=== PATIENT | female | born 1985 | race Caucasian/White ===

== ENCOUNTER 2018-09-21 16:07 | Emergency (ER) | payer SELFPAY ==
--- NOTE | 2018-09-21 16:34 | EDPHY ---
H & P Stated Complaint: SI with no plan Time Seen by Provider: 09/21/18 16:33 - Personal History LMP (Females 10-55): Now Current Tetanus/Diphtheria Vaccine: No Current Tetanus Diphtheria and Acellular Pertussis (TDAP): No - Medical/Surgical History Hx Asthma: No Hx Chronic Respiratory Disease: No Hx Diabetes: No Hx Cardiac Disease: No Hx Renal Disease: No Hx Cirrhosis: No Hx Alcoholism: No Hx HIV/AIDS: No Hx Splenectomy or Spleen Trauma: No Other PMH: depression, anxiety - Social History Smoking Status: Never smoked Constitutional: Initial Vital Signs Temperature (C) 36.7 C 09/21/18 16:15 Heart Rate 94 09/21/18 16:15 Respiratory Rate 16 09/21/18 16:15 Blood Pressure 121/99 H 09/21/18 16:15 O2 Sat (%) 99 09/21/18 16:15 O2 Delivery Mode Room Air Allergies/Adverse Reactions: levofloxacin [From Levaquin] Allergy (Verified 09/21/18 16:14) Home Medications: Medication Instructions Recorded Gricelda 28 Tablet 09/21/18 Medical Decision Making ED Course/Re-evaluation: CHIEF COMPLAINT: Psychiatric evaluation HISTORY OF PRESENT ILLNESS: The patient is a 33 y/o female arriving via voluntary via private vehicle for a psychiatric evaluation. This morning she felt suicidal and saw her therapist. Due to the thoughts, she was advised to present to the emergency department. However, she currently isn't suicidal. The patient states she went through an intensive outpatient program and states she has tools to deal with her depression. She states "I don't want to be here" and "I'm feeling better and not suicidal", but her feels like the therapist "forced me to bring her in". Her states that the patient needs her medication changed as it hasn 't been working. No fever, headache, body aches, lightheadedness, chest pain, heart palpitations, shortness of breath, cough, abdominal pain, urinary or bowel complaints, numbness, paresthesias. REVIEW OF SYSTEMS: A comprehensive 10 system review of systems is otherwise negative aside from elements mentioned in the history of present illness and medical decision making. PHYSICAL EXAM: General Appearance: Alert, well hydrated, appropriate, and non-toxic appearing. Head: Atraumatic without scalp tenderness or obvious injury Eyes: Pupils equal, round, reactive to light and accommodation, EOMI, no trauma , no injection. Ears: Clear bilaterally, no perforation, normal landmarks Nose: Atraumatic, no rhinorrhea, clear. Throat: There is no erythema or exudates, no lesions, normal tonsils, mucus membranes moist. Neck: Supple, 2+ carotid upstroke, nontender, no lymphadenopathy. Respiratory: No retractions, no distress, no wheezes, and no accessory muscle use. Lungs are clear to auscultation bilaterally. Cardiovascular: Regular rate and rhythm, no murmurs, rubs, or gallops. Bilateral carotid, radial, dorsalis pedis, and posterior tibial pulses intact. Good capillary refill all extremities. Gastrointestinal: Abdomen is soft, nontender, non-distended, no masses, no rebound, no guarding, no peritoneal signs. Musculoskeletal: Normal active ROM of all extremities, atraumatic. Neurological: Alert, appropriate, and interactive. The patient has normal DTRs and non-focal cranial nerves, motor, sensory, and cerebellar exam. Skin: No rashes, good turgor, no nodules on palpation. Psych: Denies suicidal or homicidal ideations. Patient is not gravely disabled. Past medical history: Depression Past surgical history: Anxiety Family history: Denies Social history: at bedside, lives in [place], [facility] DIFFERENTIAL DIAGNOSIS: The differential diagnosis for the patient's depression included but was not limited to functional and major depression, situational depression, medication side effect, drugs, and alcohol abuse. MEDICAL DECISION MAKING: The patient is a 33 y/o female arriving via voluntary via private vehicle for a psychiatric evaluation. This morning she felt suicidal and saw her therapist. Due to the thoughts, she was advised to present to the emergency department. However, she currently isn't suicidal. She states "I don't want to be here" and "I'm feeling better and not suicidal", but her feels like the therapist "forced me to bring her in". This patient does not meet hold criteria as she is not suicidal, homicidal, or gravely disabled. I will speak with the mental health scouring train operator chief regarding this patient. Patient is in no acute distress and is hemodynamically stable. We are awaiting psychiatric team's evaluation. Patient has known history of psychiatric disorders and is here for evaluation. 1651: I consulted with Rene, mental health scouring train operator chief, regarding this patient. 1836: I consulted with Rene regarding this patient after he evaluated her. She was provided resources for her depression and anxiety. She is safe to be discharged home. I have prescribed her Ativan for her anxiety. Return precautions provided; patient is comfortable with this plan. Departure - Departure Disposition: Home, Routine, Self-Care Clinical Impression: Suicidal ideation, Severe major depression Condition: Good Instructions: Depression (ED), Suicide Prevention (ED) Additional Instructions: 1. Follow-up with your mental health provider as directed. Please discuss medication change with your mental health provider. 2. Return to the ED for thoughts of self-harm, racing thoughts or other concerns. 3. Take Ativan as prescribed for anxiety. Referrals: [facility],. [Clinic] - As per Instructions Report Scribed for: Raphael Liao Report Scribed by: Faiza Ventura Date of Report: 09/21/18 Time of Report: 16:39
[2018-09-21] MEDS ORDERED: LORAZEPAM 1 MG PREPACK#4 BTL TAKEHOME ONE (18:35)
[2018-09-21 18:52] VITALS: BP 118/78
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
== END 2018-09-21 18:49 | disposition home or self-care (01) ==
DX: R45.851 Suicidal ideations (principal); F32.9 Major depressive disorder, single episode, unspecified; F41.9 Anxiety disorder, unspecified

== ENCOUNTER 2018-10-03 11:57 | Inpatient (IN) | payer OTHER ==
--- NOTE | 2018-10-03 13:07 | EDPHY ---
General Time Seen by Provider: 10/03/18 12:23 Narrative: CLINICAL IMPRESSION: Suicidal ideations ASSESSMENT/PLAN: 33-year-old female with a history of depression, anxiety, seen recently in our emergency department, returns today with her parents, social work and police for worsening depression anxiety and suicidal ideations. Patient is tearful, withdrawn, and admits to feeling suicidal with a plan to jump off a bridge. Patient has been hospitalized in the past for depression and admits to attempting suicide in the past. She has had no recent attempts and denies homicidal ideation. She was placed on an M1 hold by myself. She was medically cleared and evaluated by [facility]. I expect patient will require inpatient hospitalization. Case signed out to Dr. Ash pending [facility] evaluation and bed search. Patient stable at time of sign-out. DIFFERENTIAL DX: Differential includes but not limited to, acute/chronic psychosis, severe depression, suicidal or homicidal ideations, grave disability, failure to thrive , medication noncompliance, medication side effect, alcohol intoxication and illicit drug use, metabolic disturbance, electrolyte imbalance ED PROCEDURES: See lab and/or imaging results below ED COURSE: 1:00 p.m.: Based on my conversation with the patient and family and a social work administrator concerns, patient was placed on an M1 hold due to suicidal ideations. Standard lab and urine studies ordered. 1:30 pm: Patient is med cleared for [facility] eval. CHIEF COMPLAINT: Suicidal ideations HPI: 33-year-old female presents to the emergency department with social work administrator and her parents for concerns of severe depression with suicidal ideations. Patient is tearful, withdrawn, states that she has been suffering from depression and anxiety for "a very long time". States that medications do nothing and then most recently she has tried Zoloft and Ativan. She was seen in our emergency department 2 weeks ago, not deemed appropriate for hospitalization and was given Ativan at discharge. She does not feel this did anything for her. According to social work and parents, patient's condition has worsened over the last 2 weeks. She admits to me that she is feeling suicidal with a plan to jump off a building. She admits that she wants to kill herself in a way that does not injure other people. She feels as though she is "a piece of shit" that she "cannot picking tech the pieces of her life". She is but states that her is leaving her because she "cannot get her should together and he is tired of baby-sitting me". She admits to attempting suicide in the past. She has been picking at her fingers and hitting her legs on chairs in order to alleviate pain and has some wounds to these areas. She does have firearms in her home but there walked in a gun safe and she does not know the combination. 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 She was admitted to [facility] 1 year ago but states that she had a very unpleasant experience there because she found out she was in the hospital and felt that she was "forced into a decision about what to do with the ". Patient tells me that she elected to terminate the . She has no children at home. She reports there is a strong family history of depression and suicidal thoughts in both her parents and grandmother. 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 She smokes marijuana but denies any other drugs or alcohol. PAST MEDICAL HISTORY: Patient denies any past medical or surgical history See nurse/triage notes for additional history if applicable Family History: Patient reports family history of depression and suicidal thoughts Social History: Currently , lives in [place], brought to the ED by her parents REVIEW OF SYSTEMS: All other systems negative Constitutional: No fever, no chills, appetite change. Eyes: No discharge, vision change ENT: No sore throat, congestion, ear pain. Cardiovascular: No chest pain, no palpitations. Respiratory: No cough, no shortness of breath. Gastrointestinal: No abdominal pain, no vomiting, diarrhea. Genitourinary: No hematuria, dysuria, flank pain, pelvic pain, denies Musculoskeletal: No back pain, joint swelling, joint pain, myalgias. Skin: No rashes, color change. Sores to fingers and the backs of her heels Neurological: No headache, dizziness, weakness. PHYSICAL EXAM: General Appearance: Alert, oriented, sad, tearful, withdrawn, admits to feeling suicidal, vital signs stable, otherwise no physical complaints HEENT: Oropharynx clear is no erythema or exudates, no tonsillar hypertrophy or asymmetry. Eyes: [PERRLA, no acute vision change Neck: [Supple, nontender, no lymphadenopathy Respiratory: There are no retractions, lungs are clear to auscultation. Cardiac: Regular rate and rhythm, no murmurs or gallops. Gastrointestinal: [Abdomen is soft, nontender Neurological: [ Alert and oriented x 3, CN 2-12 grossly intact, normal gait no ataxia Skin: Warm, dry, no rashes, no nodules on palpation. no e/o paronychia of nails. small blisters to backs of both heels. Musculoskeletal: [Extremities are symmetrical, full range of motion Psychiatric: Patient is oriented X 3, there is no agitation, + suicidal with plan to jump off a bridge, tearful, withdrawn MEDICAL DECISION MAKING: Patient was seen independently. Secondary supervising physician at time of evaluation was Dr Nilsa Woods. Diagnosis: Suicidal ideations. New, requires workup Summary: See Assessment and Plan for summary of ED visit Clinical lab tests: ordered / reviewed. Decision to obtain medical records or history from someone other than the patient: Social work, parents, police Review / Summarize previous medical records: Reviewed recent ED chart notes Discussed patient with another provider: Dr. Lalo Munguia Patient Progress: stable at time of signout. - History Smoking Status: Never smoked - Objective Vital Signs: Initial Vital Signs Temperature (C) 36.9 C 10/03/18 12:56 Heart Rate 95 10/03/18 12:56 Respiratory Rate 16 10/03/18 12:56 Blood Pressure 134/78 H 10/03/18 12:56 O2 Sat (%) 97 10/03/18 12:56 O2 Delivery Mode Room Air Allergies/Adverse Reactions: levofloxacin [From Levaquin] Allergy (Verified 10/03/18 12:28) Home Medications: Medication Instructions Recorded Gricelda 28 Tablet 09/21/18 Laboratory Results: Laboratory Results 10/03/18 12:55 10/03/18 12:55 10/03/18 10/03/18 10/03/18 12:55 12:55 12:55 WBC RBC Hgb Hct MCV MCH MCHC RDW Plt Count MPV Neut % (Auto) Lymph % (Auto) Crockett % (Auto) Eos % (Auto) Baso % (Auto) Nucleat RBC Rel Count Absolute Neuts (auto) Absolute Lymphs (auto) Absolute Monos (auto) Absolute Eos (auto) Absolute Basos (auto) Absolute Nucleated RBC Immature Gran % Immature Gran # Sodium 141 mEq/L mEq/L (135-145) Potassium 4.0 mEq/L mEq/L (3.5-5.2) Chloride 103 mEq/L mEq/L (97-110) Carbon Dioxide 24 mEq/l mEq/l (22-31) Anion Gap 14 mEq/L mEq/L (6-14) BUN 20 mg/dL mg/dL (7-23) Creatinine 0.8 mg/dL mg/dL (0.6-1.0) Estimated GFR > 60 Glucose 92 mg/dL mg/dL (70-100) Calcium 10.2 mg/dL mg/dL (8.5-10.4) Beta HCG, Qual NEGATIVE Salicylates < 1.0 mg/dL L mg/dL (2.0-20.0) Urine Opiates Screen NEGATIVE (NEGATIVE) Acetaminophen < 10 mcg/mL L mcg/mL (10-30) Urine Barbiturates NEGATIVE (NEGATIVE) Ur Phencyclidine Scrn NEGATIVE (NEGATIVE) Ur Amphetamine Screen NEGATIVE (NEGATIVE) U Benzodiazepines Scrn NEGATIVE (NEGATIVE) Urine Cocaine Screen NEGATIVE (NEGATIVE) U Marijuana (THC) Screen NEGATIVE (NEGATIVE) Ethyl Alcohol < 10 mg/dL mg/dL (0-10) 10/03/18 12:55 WBC 6.41 10^3/uL 10^3/uL (3.80-9.50) RBC 5.05 10^6/uL 10^6/uL (4.18-5.33) Hgb 15.2 g/dL g/dL (12.6-16.3) Hct 47.1 % H % (38.0-47.0) MCV 93.3 fL fL (81.5-99.8) MCH 30.1 pg pg (27.9-34.1) MCHC 32.3 g/dL L g/dL (32.4-36.7) RDW 13.5 % % (11.5-15.2) Plt Count 331 10^3/uL 10^3/uL (150-400) MPV 10.6 fL fL (8.7-11.7) Neut % (Auto) 67.9 % % (39.3-74.2) Lymph % (Auto) 24.2 % % (15.0-45.0) Crockett % (Auto) 7.0 % % (4.5-13.0) Eos % (Auto) 0.2 % L % (0.6-7.6) Baso % (Auto) 0.5 % % (0.3-1.7) Nucleat RBC Rel Count 0.0 % % (0.0-0.2) Absolute Neuts (auto) 4.36 10^3/uL 10^3/uL (1.70-6.50) Absolute Lymphs (auto) 1.55 10^3/uL 10^3/uL (1.00-3.00) Absolute Monos (auto) 0.45 10^3/uL 10^3/uL (0.30-0.80) Absolute Eos (auto) 0.01 10^3/uL L 10^3/uL (0.03-0.40) Absolute Basos (auto) 0.03 10^3/uL 10^3/uL (0.02-0.10) Absolute Nucleated RBC 0.00 10^3/uL 10^3/uL (0-0.01) Immature Gran % 0.2 % % (0.0-1.1) Immature Gran # 0.01 10^3/uL 10^3/uL (0.00-0.10) Sodium Potassium Chloride Carbon Dioxide Anion Gap BUN Creatinine Estimated GFR Glucose Calcium Beta HCG, Qual Salicylates Urine Opiates Screen Acetaminophen Urine Barbiturates Ur Phencyclidine Scrn Ur Amphetamine Screen U Benzodiazepines Scrn Urine Cocaine Screen U Marijuana (THC) Screen Ethyl Alcohol Departure - Departure Referrals: NONE *PRIMARY CARE P,. [Primary Care Provider] - As per Instructions
[2018-10-03 13:09] LABS: PLATELET COUNT 331 10^3/uL (150-400)
--- NOTE | 2018-10-03 17:27 | PDCONSULT ---
Domestic Maid Note: CC: Suicidal Ideations HPI: Jesica Araujo is a 33 yo F with a PMHx of Depression with past suicide attempts and anxiety who present to [facility] for suicidal ideations. She reports that for the past week she has noticed increased redness in her L ear. She described redness at the top of her L ear where she has some piercings. She denies any f/c, prurulent drainage. She denies any other pMHx or taking any chronic medications for chronic medical conditions. Her parents are at her bedside who have helped with hx taking. ROS: Negative other than stated in HPI PE: GEN: NAD HEENT: NCAT, PERRLA CARDS: no m/r/g, no edema LUNGS: CTA b/l, no w/r/r ABD: S/NT/ND : No Campbell presents Ext: No c/c/e Neuro: AAOx3, no focal deficits noted Psych: Interacting appropriately A&P: Jesica Araujo is a 33 yo F with a PMHx of Depression with past suicide attempts and anxiety who present to [facility] for suicidal ideations Suicidal Ideations/Depression - Being admitted to IP Psychiatry unit for further evaluation and management of condition L Ear Irritation - Appears mildly warm and red, no abscess or fluid presents - Afebrile, no leukocytosis - Recommend topical antibiotic (ex. Bacitracin) BID for now, if no improvement over next 72 hours, reevaluate and consider PO abx if worsening Patient is cleared from a medical standpoint for admission to IP Psych. Thank you for the consult.
--- NOTE | 2018-10-03 17:43 | ASMTTCLDSP ---
[facility] Discharge Disposition Disposition: Answers: Admit Disposition Notes: Notes: In consultation with [facility] ED PA Brett Ha and on-call psychiatrist, Gaudencio Friedman MD, both concurred that pt appears to meet 27-65 criteria requiring psychiatric hospitalization as pt appears to be at risk of harm to self due to a mental illness condition. Pt was read the Patient Rights and Responsibilities Statement on 10/03/18 at 15:15, original placed on chart, and was given photocopy of Rights. Pt (signedthe Patient Rights. Pt was given the 3[facility] prohibited belongings list while in the ED. Was patient given the Answers: Yes Inpatient Behavioral Health Prohibited Belongings List while in the ED? For inpatient Dr Gaudencio Friedman admission, the following psychiatrist agreed to accept patient for admission to Behavioral Health ([facility]): Type of Hold: Answers: M1/72-hour Hold Hold initiated by: Answers: ED Physician Date Signed: 10/03/2018 05:42 PM Electronically Signed By:Giuliana Davis
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
[2018-10-03] MEDS ORDERED: MAG HYDROX/AL HYDROX/SIMETH 30 ML UDCUP PO PRN (20:42)
[2018-10-03] MEDS ORDERED: MAGNESIUM HYDROXIDE 30 ML UDCUP PO PRN (20:42)
[2018-10-03] MEDS ORDERED: NICOTINE POLACRILEX 2 MG GUM B PRN (20:43)
[2018-10-03] MEDS ORDERED: BACITRACIN OINTMENT 1 PACKET TP ONE (21:29)
[2018-10-03] MEDS: LORazepam 0.5 MG TAB PO PRN (21:30)
[2018-10-03] MEDS: BACITRACIN OINTMENT 1 PACKET TP SCH (22:19)
--- NOTE | 2018-10-04 08:05 | ASMTBHMTP ---
Master Treatment Plan Master Treatment Plan Answers: Depressed Mood with for: Suicidal Ideation Date: 10/03/2018 Diagnosis on Admission: MDD Expected length of stay: 3-5 days Reason for admission: Notes: Per Report: Pt is a 33 year old female who presented to the [facility] ED with her parents, hospital social media developer and police for worsening depression, anxiety and suicidal ideations. Pt has a hx of depression, anxiety and recent heightened SI with a plan to jump off a bridge. Upon presenting to the ED pt was noted to be tearful, withdrawn, and stated she has been suffering with depression for a long time. Pt has a hx of past hospitalizations for depression and admits to suicide attempt in the past per ED report. Pt was placed on a M1 hold by ED provider. Pt was seen in the ED department 2 weeks ago and assessed at the time not in need of inpt hospitalization but was given PRN Ativan Rx. According to parents and therapist report pt.s condition has been worsening over the last 2 weeks. She admitted to the ED provider of having suicidal thoughts with a plan to jump off a high building. She had stated a desire to kill herself in a way that did not harm other people. She expressed feeling as she is a piece of shit and that she cannot brain picker the pieces in her life. Pt had reported her is leaving her because she cannot get herself together. It was observed pt had bruises on her legs from self inflicting hitting herself to ease emotional pain. It was reported pt has access to guns but guns are in a safe and she does not know the combination. Pt expressed feeling as if she cannot take care of herself anymore. When [facility] met with pt she was cooperative but labile. Pt stated, I dont deserve to live. I want to kill myself. Pt expressed hopelessness about her future and said she doesnt feel as if she can take care of herself. Parents expressed extreme concern about pt.s functional decline especially over the past 2 weeks. Parents are in support of admission due to concerns for her safety. Parents stated they received a call from financial analyst accountant who had met with pt and her yesterday. Upholstery Cutter had called parents expressing concerns that pt was not doing well, hardly spoke in the meeting and he had felt pt was in need of an intervention. Parents called her psychologist with concerns and they were apparently informed pt is not an active client with Dr. Garibay. Parents stated pt has a trust from her paternal grandfather and were recently informed pt had gone through about million of the trust with excessive spending along with a 40 thousand credit card bill. Parents had expressed concern about relationship between pt and her . Discharge criteria: Notes: Suicidal ideation will resolve and patient will have a plan to safely manage recurrent suicidal ideation. Master Treatment Plan Required Signatures Psychiatrist signature: Answers: Psychiatrist: RN on-shift signature: Answers: RN: Patient signature: Answers: Patient: Date Signed: 10/04/2018 08:04 AM Electronically Signed By:Yovany Feliz. .Mu,RJimP
--- NOTE | 2018-10-04 09:52 | PDMN ---
Medical Necessity Medical necessity: Pt meets inpt criteria per MD order and [facility] B-[id number], Major Depressive Disorder, Adult: Inpatient Care, 3 days. 33 y/o presenting w/ worsening depression, anxiety, and suicidal ideation admitted w/major depressive disorder, recurrent, severe, on M1 hold due to risk of harm to self due to mental illness condition, appears to meet criteria requiring inpt psychiatric hospitalization.
[2018-10-04] MEDS: SERTRALINE HCL 100 MG TAB PO SCH (11:17)
[2018-10-04] MEDS: BACITRACIN OINTMENT 1 PACKET TP SCH ×2 (11:17→21:07)
[2018-10-04] MEDS: Ethinyl Estradiol/Drospirenone [Yaz 28 Tablet] 1 EACH PO SCH ×2 (11:28→21:27)
--- NOTE | 2018-10-04 12:54 | ASMTCMCOM ---
CM Note CM Note Notes: CC was able to be transferred to Dr. Jeanine Smith's VM. No answer left a detailed VM with all necessaryreturn contact information as well as describing that Dr. Friedman would appreciate a phone call back from Dr. Smith. CC left all necessary return contact information for Dr. Friedman via VM. Waiting to hear back. Date Signed: 10/04/2018 12:53 PM Electronically Signed By:Yovany Feliz. .Corinne.,R.P
--- NOTE | 2018-10-04 13:28 | BAPA ---
[f rep st] ADMISSION PSYCHIATRIC ASSESSMENT CHIEF COMPLAINT: "I have had a total mental breakdown. I can't interact with people or get out of b ed. I can't make any decisions." HISTORY OF PRESENT ILLNESS: The patient is a 33-year-old female with a history of previous depression, who presents to the emergency department after an approximate 2 week "crash." She repor ts depression in the past, for which she saw Dr. Smith at the [facility], and she states that she took numerous antidepressants, including augmentation with atypical age nts such as Abilify, and without much benefit. She states she then had a period of "2 years of manic spending." She states that she received a significant inheritance from her grandfather and began to spend it "out of control." She states she did this "behind my 's back" and that he has since found out about this when they went to visit a healthcare financial analyst, and that this has caused her to wei ve intense anxiety and shame. She states "I'm the worst person in the world, like the devil. I have messed everything up. I do not know how to move forward. I am overwhelmed." She states that she w as seeing a therapist who is a psychologist named Dr. Restrepo, but has not seen him since May or so. She was also seeing Dr. Smith in the past, but has not seen her for a year or so. She reports re cently going to [place] with her , "to let things settle out." She was there for approximately 8 weeks and reports not feeling any better. She started Zoloft that she acquired in [place] without a prescription and increased to 150 mg. She states it might have helped some, but she has not taken it consistently. She started it about 2 weeks ago. She states that currently since returning home, "I can't function. I can't even get out of bed." She states she has been having frequent thoughts o f suicide and is "hearing things." She states, "I hear thoughts constantly. They say things like "y ou shouldn't be here" and "you should kill yourself" and "you're a piece of shit." She states this h as caused her to have pressing thoughts of suicide more and more in the last week, with thoughts of j umping off a structure, including a bridge. She states that she researched online how high she neede d to jump to be sure to , as she does not want to be injured and represent a burden to her with medical bills. She states she recently went to a highway overpass to see if she could climb it in an attempt to plan for her to jump off. She revealed this to her in the last couple days , as he was becoming, by her report, aggravated with her because she was essentially nonfunctional. She presents today stating that she feels very depressed, feels like no medications are going to help her, and is certain that if she leaves the hospital she would attempt to kill herself. She then sta migel that she would like to leave the hospital as soon as we will allow her, despite feeling unsafe. PAST PSYCHIATRIC HISTORY: Patient states she previously took "lots of different medications" but can not remember the names of any of them, even with prompting. She was hospitalized about a year ago at [facility] due to suicidal ideation, though could not remember how long or what she w as treated with there. She denies any previous suicide attempts. She has a history of restricting t ype bulimia. She does remember previously having taken a combination of Abilify and Zoloft, and tasha guzman this may have been helpful. ALLERGIES: Levofloxacin. CURRENT MEDICATIONS: Zoloft 150 mg daily. PAST MEDICAL HISTORY: Noncontributory. SOCIAL HISTORY: The patient has been for 2 years and lives in [place] with her and 3 dogs. 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 She stat es she had a very good job that "anyone would be thankful for." She is no longer working there [employer], after not being able to adequately attend to her duties due to her depression, primarily not bein g able to get out of bed, and then her memory issues, which she also relates to her depression. She states that she was under performing and was let go. She reports having money in the bank, though wei s spent between 500,000 and a million dollars in the last year, and then states she has nothing to sh ow for it. She is unable to tell me what she spent the money on or even the pattern of spending, or give any example of the spending. Her primary supports are her parents, who live in [place]. She re ports stress in her marriage with her over the last month. SUBSTANCE ABUSE HISTORY: Patient states she has used marijuana multiple times daily for more than e last 2 years. She states that she primarily vapes and does this at bedtime to help with her sleep. She denies any other drugs. FAMILY HISTORY: Patient states that her mother, father, maternal grandfather and paternal grandfathe r all suffered from depression. She states her paternal grandfather also was alcoholic. ADMITTING LABORATORY: CBC shows a hematocrit of 47.1, otherwise unremarkable. Serum chemistries are normal. Beta hCG is negative. Urine drug screen is negative for all substances. Alcohol is less t whipple detectable. MENTAL STATUS EXAMINATION: Reveals a thin, though healthy-appearing female. She is guarde d and wears a blanket wrapped tightly around her shoulders. She is otherwise interactive and pleasan t. Her activity is decreased, with significant psychomotor retardation, and her affect is restricted , dysphoric, stable, and appropriate. Her mood is described as "really depressed." Her thought proc ess is linear and goal directed. Her thought content reveals this report of these thoughts that she can hear telling her she is a bad person, that she should kill herself. She is alert and oriented to person, place, time, and situation. Her sensorium is clear. She denies any current intent to harm herself on the unit, though states fairly clearly that if she leaves the hospital she believes she wi ll kill herself. Her intellect appears to be above average, as evidenced by her educational and occu pational history, fund of knowledge, and vocabulary. Her insight and judgment appear to be marginal. IMPRESSION: Unspecified bipolar disorder, most recent episode mixed, severe, with psychosis. Cannab is use disorder, severe. Suicidality, marital stress, work stress, financial stress. The patient is a 33-year-old female who was previously high functioning, but apparently has declined over the last several years. She has currently lost her job and appears to be quite depres sed. The exact nature of this is unclear, but she does give symptoms by her own account of mood vari ability and possible hypomania. She also has treatment resistance with multiple previous agents bein g unhelpful. I discussed with her numerous options for treatment, and she is somewhat reluctant to b e in the hospital, but does agree to consideration of possible alternative interventions. PLAN: 1. [facility] hold. 2. Maintain close observation for suicidality, as she has described a clear intent to kill herself i f she is able. At this time, however, she states she has no intention to harm herself on the unit. 3. Will contact Dr. Smith to see if perhaps she has any insight into the current situation or recomme ndations, and to get a waite history of her previous medication trials. 4. Will engage patient's family in treatment planning and in a family meeting in order to get their input as well. ESTIMATED LENGTH OF STAY: 5-7 days. /[id number]/MODL
[2018-10-04] MEDS: LORazepam 0.5 MG TAB PO PRN (21:26)
[2018-10-05] MEDS: BACITRACIN OINTMENT 1 PACKET TP SCH ×2 (09:07→20:51)
[2018-10-05] MEDS: SERTRALINE HCL 100 MG TAB PO SCH (09:07)
[2018-10-05] MEDS: Ethinyl Estradiol/Drospirenone [Yaz 28 Tablet] 1 EACH PO SCH (09:08)
--- NOTE | 2018-10-05 13:34 | ASMTCMCOM ---
CM Note CM Note Notes: CC spoke with family regarding poss. family meeting set for Monday at 11:30am* Family presents as nice and accommodating towards client's needs. Date Signed: 10/05/2018 01:33 PM Electronically Signed By:Yovany Feliz. .Mu,R.P
[2018-10-05] MEDS: LURASIDONE HCL 20 MG TAB PO SCH (17:24)
--- NOTE | 2018-10-05 18:13 | SOAPPROG ---
SOAP Progress Note Assessment/Plan: Assessment: Plan: 10/05/18 18:13 Mood/SI: Slightly calmer today, remains very depressed. Will start Latuda for augmentation and mood stablization, monitor. Subjective: Pt seen, discussed with staff, interviewed in Treatment Team meeting. She reports feeling "a little better." Discussed meds again and she is agreeable to trial of Latuda. The risks, benefits and alternatives of this are reviewed. She mentions again her desire to go home as soon as possible. I emphasized that we need to get a handle on the depression and SI before we can consider that. MSE: Calm, coop. Affect is dysphoric, restricted. Mood is "a little better." TP is linear. TC reveals no psychosis, reports no AH's today. SI persists. She tearfully states to Team, "I don't want to tell you what's really going on because you'll make me stay here." Objective: Vital Signs Temp Pulse Resp BP Pulse Ox 36.7 C 72 14 110/66 96 10/05/18 06:00 10/05/18 06:00 10/05/18 06:00 10/05/18 06:00 10/05/18 06:00 - Time Spent With Patient Time Spent With Patient: 25" ICD10 Worksheet Patient Problems: Problems Problem Status Onset Suicidal ideation Acute
[2018-10-05] MEDS: LORazepam 0.5 MG TAB PO PRN (21:03)
[2018-10-06] MEDS: BACITRACIN OINTMENT 1 PACKET TP SCH ×2 (09:02→21:02)
[2018-10-06] MEDS: SERTRALINE HCL 100 MG TAB PO SCH (09:03)
[2018-10-06] MEDS: Ethinyl Estradiol/Drospirenone [Yaz 28 Tablet] 1 EACH PO SCH (09:04)
[2018-10-06] MEDS: LORazepam 0.5 MG TAB PO PRN ×2 (14:29→21:04)
[2018-10-06] MEDS: LURASIDONE HCL 20 MG TAB PO SCH (18:03)
--- NOTE | 2018-10-07 01:37 | SOAPPROG ---
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 On Zoloft which reportedly has helped in past, recently added Latuda for augmentation and given possible hx of can. 10/06/18 11:37 slept 7hr. M-1 expiring today. Met with pt at length. Reviewed hx and precipitants to admission. Pt maintains she feels ready for d/c. 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 Lost job b/c "panic attacks , called in sick too often, and I didn't want to ask for help". Thereafter, started spending money to feel better. [place] overwhelmed by life. Went to [place] w to escape stress/anxiety but this was ineffective. Was in "black, hopeless moment" and came for admission b/c did not know what else to do, "I let suicidal thoughts take over". Reports since admission, "feeling a lot better" b/c has been "talking to my ", and "I know I need to resume regular therapy... I had to get over the stigma" and feeling of weakness associated with outpatient therapy. States she went for couple of months weekly after last admission/1st psych hosp , after IOP, and found therapy +/- helpful, but therapy also increased her anxiety due to issues addressed in therapy. Stopped outpt tx 04/2018. Admits to vaping THC nightly, then stated maybe only about 4x/wk. Had started THC many years ago for anxiety. Feels she is using this "as a crutch instead of using better coping like running or connecting with friends". Pt reports recent marital stressors have been related to financial issues with her spending, altho she reports H took care of all debt since her admission. Spoke with with pt consent. H did acknowledge the last couple of weeks have been "rough" He feels he could keep pt safe at home but does not want to take on full responsibility for this decision if primary inpt team has concerns regarding premature discharge, and also admits pt's parents would be quite distressed. H notes that in-laws are significant stressors for both pt and himself due to being very "controlling". Cites examples of pt's parents insisting pt sign HIPPA NILA so they can obtain her hospital records, pursuing changes to terms of her grandfather's trust, and also discusses a significant emotional stressor when pt first psychiatrically hospitalized last year and was found to be . Pt and H had decided they were not ready for a child, and were working with [facility], meanwhile parents kept heavily placing guilt upon them and insist they continue with the . Pt reports no med s/e, incl to newly added med Latuda 20mg. MSE: cooperative, calm, good eye contact. controlled/restricted affect. mood "a lot better", thoughts linear, goal-directed, denied plan/intent to harm self and feels she can remain safe on unit. denied psychotic sxs today altho admitted experiencing +AH/voice, but not sure if it was just her thoughts, with her SI "that were strong" telling her "you should kill yourself" early in hosp course.. PLAN: -cont current meds. consider incr latuda to 40mg as indicated -Discussed concerns about premature discharge, as pt reports ready to go home. No solid d/c plan in place, except pt reporting willingness to engage in outpt therapy now and no longer feeling therapy is sign of weakness. However, states therapy last time was +/- helpful and increased her anxiety b/c of topics discussed. Additionally, concerns present for pt attempting to present more well than feeling in attempt to d/c fartun, which she has been reportedly eager to do since admission. -Also only yesterday started new med and was still reporting SI. And on admission, reported clear SI with intent to kill self if able. Has baseline high intelligence and would be high risk w/o period of adequate stabilization and solid d/c plan. -As noted on admission, family mtg would be important for d/c planning. With , with parents, perhaps all together or not together. Need to further explore family dynamics/conflicts. H reporting parents are controlling and manipulative, but clearly involved in both their lives. -Additionally, seems a possible additional emotional stressor relates to termination of last Fall around time of 1st psych admission. H reported this was their decision, parents not in agreement, caused conflict. -Will also need to engage oupt providers at [facility], and obtain collateral. -Pt reporting interest in IOP after d/c. Has done IOP in past. -Collateral from prior hospitalization would be helpful. -Educated on adverse risks of THC on mental health. Continue to educate, and further explore use hx and relationship if any to depression/motivation -Discussed options upon expiration of M-1. Pt declined to sign in voluntarily. Due to elevated level of risk, and other factors noted above, pt was placed on STC. Informed of rights, right to 3rd libertarian notification and legal representation. Objective: Vital Signs Temp Pulse Resp BP Pulse Ox 36.9 C 72 14 113/55 L 96 10/06/18 06:00 10/06/18 06:00 10/06/18 06:00 10/06/18 06:00 10/06/18 06:00 - Time Spent With Patient Time Spent With Patient: 60min - Pending Discharge Pending Discharge Within 24 Hours: No Pending Discharge Within 48 Hours: No ICD10 Worksheet Patient Problems: Problems Problem Status Onset Suicidal ideation Acute
[2018-10-07] MEDS: Ethinyl Estradiol/Drospirenone [Yaz 28 Tablet] 1 EACH PO SCH (08:33)
[2018-10-07] MEDS: ACETAMINOPHEN 325 MG TAB PO PRN (08:33)
[2018-10-07] MEDS: BACITRACIN OINTMENT 1 PACKET TP SCH ×2 (08:33→21:41)
[2018-10-07] MEDS: SERTRALINE HCL 100 MG TAB PO SCH (08:33)
--- NOTE | 2018-10-07 14:18 | ASMTCMCOM ---
CM Note CM Note Notes: The patient was under talkative and observed lying down. She reported a headache. The patient spoke softly and quietly. She was tearful as she described her state prior to admission including that she "could not get out of bed for two weeks." The patient demonstrated understanding and justification of her current legal status; "the need for stability and recent stressors." The patient explained that she was feeling "much better" although remaining "anxious" compared to feeling "super sad" upon admission. The patient discussed interest in outpatient services emphasizing her motivation to discharge and begin tx. She reported disappointment with her hospitalization specifically lack of individualized/tailored care and rapport with staff due to shift change, etc. Date Signed: 10/07/2018 02:17 PM Electronically Signed By:Sari Vang. PINEDA,Mercedes,R-SADIAT
[2018-10-07] MEDS: LURASIDONE HCL 20 MG TAB PO SCH (17:37)
--- NOTE | 2018-10-08 01:40 | SOAPPROG ---
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 On Zoloft which reportedly has helped in past, recently added Latuda for augmentation and given possible hx of can. 10/06/18 11:37 slept 7hr. M-1 expiring today. Met with pt at length. Reviewed hx and precipitants to admission. Pt maintains she feels ready for d/c. 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 Lost job b/c "panic attacks , called in sick too often, and I didn't want to ask for help". Thereafter, started spending money to feel better. [place] overwhelmed by life. Went to [place] w to escape stress/anxiety but this was ineffective. Was in "black, hopeless moment" and came for admission b/c did not know what else to do, "I let suicidal thoughts take over". Reports since admission, "feeling a lot better" b/c has been "talking to my ", and "I know I need to resume regular therapy... I had to get over the stigma" and feeling of weakness associated with outpatient therapy. States she went for couple of months weekly after last admission/1st psych hosp , after IOP, and found therapy +/- helpful, but therapy also increased her anxiety due to issues addressed in therapy. Stopped outpt tx 04/2018. Admits to vaping THC nightly, then stated maybe only about 4x/wk. Had started THC many years ago for anxiety. Feels she is using this "as a crutch instead of using better coping like running or connecting with friends". Pt reports recent marital stressors have been related to financial issues with her spending, altho she reports H took care of all debt since her admission. Spoke with with pt consent. H did acknowledge the last couple of weeks have been "rough" He feels he could keep pt safe at home but does not want to take on full responsibility for this decision if primary inpt team has concerns regarding premature discharge, and also admits pt's parents would be quite distressed. H notes that in-laws are significant stressors for both pt and himself due to being very "controlling". Cites examples of pt's parents insisting pt sign HIPPA NILA so they can obtain her hospital records, pursuing changes to terms of her grandfather's trust, and also discusses a significant emotional stressor when pt first psychiatrically hospitalized last year and was found to be . Pt and H had decided they were not ready for a child, and were working with [facility], meanwhile parents kept heavily placing guilt upon them and insist they continue with the . Pt reports no med s/e, incl to newly added med Latuda 20mg. MSE: cooperative, calm, good eye contact. controlled/restricted affect. mood "a lot better", thoughts linear, goal-directed, denied plan/intent to harm self and feels she can remain safe on unit. denied psychotic sxs today altho admitted experiencing +AH/voice, but not sure if it was just her thoughts, with her SI "that were strong" telling her "you should kill yourself" early in hosp course.. PLAN: -cont current meds. consider incr latuda to 40mg as indicated -Discussed concerns about premature discharge, as pt reports ready to go home. No solid d/c plan in place, except pt reporting willingness to engage in outpt therapy now and no longer feeling therapy is sign of weakness. However, states therapy last time was +/- helpful and increased her anxiety b/c of topics discussed. Additionally, concerns present for pt attempting to present more well than feeling in attempt to d/c fartun, which she has been reportedly eager to do since admission. -Also only yesterday started new med and was still reporting SI. And on admission, reported clear SI with intent to kill self if able. Has baseline high intelligence and would be high risk w/o period of adequate stabilization and solid d/c plan. -As noted on admission, family mtg would be important for d/c planning. With , with parents, perhaps all together or not together. Need to further explore family dynamics/conflicts. H reporting parents are controlling and manipulative, but clearly involved in both their lives. -Additionally, seems a possible additional emotional stressor relates to termination of last Fall around time of 1st psych admission. H reported this was their decision, parents not in agreement, caused conflict. -Will also need to engage oupt providers at [facility], and obtain collateral. -Pt reporting interest in IOP after d/c. Has done IOP in past. -Collateral from prior hospitalization would be helpful. -Educated on adverse risks of THC on mental health. Continue to educate, and further explore use hx and relationship if any to depression/motivation -Discussed options upon expiration of M-1. Pt declined to sign in voluntarily. Due to elevated level of risk, and other factors noted above, pt was placed on STC. Informed of rights, right to 3rd green party notification and legal representation. 10/07/18 12:03 quite tearful on evaluation. several times. talked about how she began having trouble thinking and actually doing work expected of her, which caused increased anxiety which caused incr depression. zoloft 100 and IOP helped. but inconsistent med compliance thereafter. more recently with incr depr she has had decr kwabena, weight loss 20# in past 6wk ( again cries) vaping THC nightly x 2yrs. they have a machine that crushes the [employer]ica flower. has stopped for 1-2mo periods, doesn't think THC has adversely affected mood but worried when it quit helping her feel better has no PCP. no insurance. has overspend $ from [employer]. H works as a funder. helped get her debt cleared with $ from [employer]. pt thinks her spending sprees related to own insecurities. thinks she was buying gifts for friends b/c felt insecure in her relationships with them. bought lots of books on writing b/ c she felt insecure about her writing ability. thinks she has social anxiety. denied periods of experiencing racing thoughts, euphoria, irritability, decr need for sleep. feels her is very supportive. denies any abuse. feels guilty b/c he took time off from work when supporting her during dark 2 wks prior to admission. but agreed she would have done same for him. does feel parents are supportive but feel they always try to solve problems by using their money. still feels like a child around them, or as if they treat her as one. Wants only H in family meeting. MSE: casually dressed, neat, nml PMA, nml speech rate/vol. often crying during interview, needed tissues. mood still depressed, affect congruent. Still with + SI but admits such thoughts are less frequent and less intense. Is glad to be alive (begins crying). Notes she was not feeling this was prior to admission. PLAN: 1. Pt starting to question whether doing another IOP would be helpful or just learning same stuff she learned. Need to further discuss. Would benefit from CBT as well 2. Does want an individual therapist. Has no insurance. Having all these issues addressed and appts in place would be important for safe dc plan 3. No probs with Latuda, good or bad. agreeable to try increase to 40mg. Start this PM 4. Cont Zoloft 150mg qd 5. Later in shift, staff report pt rescinded her NILA for parents. Fam mtg reportedly scheduled 11:30 Mon. Pt does ask if it's possible she will be discharged. Discussed concerns with any premature d/c. Not clear that she would be ready without solid discharge plan. Recent med increase. Seemed more sad today. (Note H had yesterday expressed that parents would likely want her in hosp longer and would be very upset if she were d/cd. Unsure if this issue relates to rescinded NILA or if pt trying to empower self and assert independence.)- need to explore. perhaps pt will allow mtg separately to address parent concerns 6. pt has no PCP. Objective: Vital Signs Temp Pulse Resp BP Pulse Ox 36.6 C 62 14 102/57 L 97 10/07/18 06:00 10/07/18 06:00 10/07/18 06:00 10/07/18 06:00 10/07/18 06:00 - Time Spent With Patient Time Spent With Patient: 45min ICD10 Worksheet Patient Problems: Problems Problem Status Onset Suicidal ideation Acute
[2018-10-08] MEDS: LORazepam 0.5 MG TAB PO PRN ×2 (02:37→20:10)
[2018-10-08] MEDS: SERTRALINE HCL 100 MG TAB PO SCH (08:52)
[2018-10-08] MEDS: Ethinyl Estradiol/Drospirenone [Yaz 28 Tablet] 1 EACH PO SCH (08:52)
[2018-10-08] MEDS: BACITRACIN OINTMENT 1 PACKET TP SCH ×2 (08:52→20:10)
--- NOTE | 2018-10-08 12:32 | ASMTCMCOM ---
CM Note CM Note Notes: CC reached out to [facility] at to request a fax number for client. Received fax number and sent out request for medical records per the provider. Waiting for records to be received. Date Signed: 10/08/2018 12:31 PM Electronically Signed By:Yovany Feliz. .Corinne.,R.P
--- NOTE | 2018-10-08 13:44 | ASMTBHFAM ---
Notes Note: Notes: Per [facility] staff, the patient agreed to allow her family to provide collateral information. This newspaper writer met with the patient's mother and sister, who expressed their concerns for the patient's safety and stability upon discharge. They reported that the patient stated to them, "Please don't tell the doctors the truth. If you tell them they'll keep me here longer. I'm not okay. I don't trust anybody. I should have killed myself." Additionally, the family members indicated that the patient has been minimizing the frequency of suicidal ideation. They reported that the patient's uses thc; frequency, intensity, duration unknown. He also has a "semi-automatic weapon" in their home; not known whether it is locked. The patient requested follow up appointments be scheduled with her outpatient providers; this newspaper writer confirmed appointments with Dr. Smith and Dr. Terry (see discharge checklist). Date Signed: 10/08/2018 01:44 PM Electronically Signed By:Sari Vang. PINEDA,Mercedes,R-SADIAT
--- NOTE | 2018-10-08 15:06 | SOAPPROG ---
SOAP Progress Note Assessment/Plan: Assessment: Plan: 10/05/18 18:13 Mood/SI: Slightly calmer today, remains very depressed. Will start Latuda for augmentation and mood stablization, monitor. 10/08/18 15:06 Mood/SI: Multiple med changes over the past four days. I agreed to return to 900mg of lithium and continue SQL 150mg with 25mg PRN. Will also continue Lamictal at titration dose. Will continue d/c planning with likely d/c in 1-2 days. Subjective: Pt seen, discussed with staff, chart reviewed. She met with Treatment Team and discussed concerns about medications. She reported GI upset with increased dose of lithium. She asks to return to 900mg dose. I reminded her of the plan to move to Lamictal ultimately and the fact that we are using an atypical adjunctively. She voices understanding of this. MSE: Affect is brighter, though remains a bit restricted. Mood is "OK." TP is linear. TC reveals no psychosis. SI "is still there". States she is "not safe to go home right now." Objective: Vital Signs Temp Pulse Resp BP Pulse Ox 36.4 C 83 14 100/62 97 10/08/18 06:00 10/08/18 06:00 10/08/18 06:00 10/08/18 06:00 10/08/18 06:00 - Time Spent With Patient Time Spent With Patient: 25" ICD10 Worksheet Patient Problems: Problems Problem Status Onset Suicidal ideation Acute
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
[2018-10-08] MEDS: LURASIDONE HCL 20 MG TAB PO SCH (17:13)
[2018-10-08] MEDS: ACETAMINOPHEN 325 MG TAB PO PRN (20:09)
[2018-10-09 06:39] VITALS: BP 108/56
[2018-10-09] MEDS: SERTRALINE HCL 100 MG TAB PO SCH (08:18)
[2018-10-09] MEDS: BACITRACIN OINTMENT 1 PACKET TP SCH (08:18)
[2018-10-09] MEDS: Ethinyl Estradiol/Drospirenone [Yaz 28 Tablet] 1 EACH PO SCH (08:19)
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
== END 2018-10-09 11:55 | disposition home or self-care (01) | DRG 885 ==
LOC: BBEH 18:10
PROVIDERS: ADMIT Psychiatry & Neurology Psychiatry; ATTEND Psychiatry & Neurology Psychiatry
DX: F31.64 Bipolar disorder, current episode mixed, severe, with psychotic features (principal); F12.959 Cannabis use, unspecified with psychotic disorder, unspecified
CPT/HCPCS: 80305; G0480